=== PATIENT | female | born 1960 | race Caucasian/White ===

== ENCOUNTER 2024-11-17 08:33 | Outpatient (AMB) | payer OTHER, SELFPAY ==
--- OUTSIDE RECORDS SUMMARY | 2024-07-23 06:30 | XMS_ITS ---
Author Organization [facility] [address] Address [address] [place] [address] Care Team Providers Care Garage Mechanic Name Role Phone SEAMUS RODRIGODALE Primary Care Provider [phone] SEAMUS LETICIA Unavailable [phone] REASON FOR VISIT 2 month f/u, secca Encounters Encounter Location Date Provider Diagnosis [facility] [address] [place] [address] 07/23/[address] Plan Of Treatment Next Appt Details Provider Name:KAIT [address], 09:00:00 AM, [address], [place], [address], Progress Notes * Lilli CARTWRIGHTDOB: [birth year] (64 yo F)Acc No.[id number]:07/23/2024 Progress Notes Patient: Lilli BAKER Provider: Bar WAY MD :1960 A ge:64 Y S ex:Female Date:07/23/2024 Address:[address] [place], [place] [id number] Subjective: * Chief Complaints: * 1 . 2 month f/u, secca. * Medical History: Objective: * Vitals: Assessment: Plan: * Treatment: * Images: Billing Information: * Visit Code: * Procedure Codes: Care Plan Details* * Electronic signature of JOSHUA H WAY on 11/17/2024 at 08:43 AM EDT Sign off status: Pending * Provider: Bar WAY MD Date: 07/23/2024 Generated for Omar arias/Ashwin/eTransmitting on: 0 11/17/2024 08:43 AM EDT
--- NOTE | 2024-11-17 08:37 | A.OFFVIS_ITS ---
Vital Signs 11/17/24 08:38 Height 5 ft 2 in Intake Visit Reasons: 1 Year FU Allergies codeine (CODEINE) Allergy (Unknown, Unverified 11/17/24 08:40) CHEST PAIN morphine (MORPHINE) Allergy (Unknown, Unverified 11/17/24 08:40) AGITATION trazodone Allergy (Unknown, Verified 11/17/24 08:40) Unknown Medication List - Last Reconciled 11/17/24 by Veronica Pickard CNP lisinopril 20 mg PO DAILY naratriptan 2.5 mg PO DAILY PRN pramipexole 1 mg PO DAILY HPI Comments Details: 64-year-old woman with h/o endometrial cancer, migraine, and restless leg syndrome. She was doing okay. RLS symptoms were controlled with medication. She had occasional migraines that were better with 1/2 tab of naratriptan. Sleep was up and down. [facility] Medical History (Updated 11/17/24 @ 08:44 by Veronica Pickard CNP) Endometrial cancer Migraine without aura RLS (restless legs syndrome) Insomnia Migraine Menstrual migraine Surgical History (Updated 11/17/24 @ 08:42 by Veronica Pickard CNP) History of hysterectomy for cancer Family History (Updated 11/13/24 @ 17:06 by Paradise Garcia MA) Mother Headache Social History (Updated 11/13/24 @ 17:06 by Paradise Garcia MA) Patient Tobacco Use Status: Never used Tobacco Review of Systems Const Denies chills, Denies daytime sleepiness, Reports difficulty sleeping, Denies fatigue, Denies fever(s), Denies frequent falls, Reports headache(s), Denies increased appetite, Denies poor appetite, Denies snoring, Denies weakness, Denies weight gain and Denies weight loss Eyes Denies loss of vision ENT Denies vertigo, Denies dizziness and Reports headache(s) Card Denies chest pain at rest, Denies chest pain with activity, Denies leg edema and Denies palpitations Resp Denies snoring GI Denies constipation, Denies heartburn, Denies diarrhea and Denies nausea Denies urinary frequency, Denies urinary incontinence and Denies urinary urgency Musc Denies abnormal gait, Denies numbness and Denies tingling Skin/Breast Denies dry skin and Denies rash Neuro Denies abnormal gait, Denies vertigo, Denies dizziness, Denies frequent falls, Reports headache(s), Denies lack of coordination, Denies loss of vision, Denies memory loss, Denies numbness, Reports restless legs, Denies seizure-like activity, Denies tingling, Denies paresthesias, Denies tremor(s) and Denies weakness Psych Denies anxiety, Denies depression, Denies auditory hallucinations, Denies memory loss, Denies visual hallucinations and Denies suicidal ideation Endo Denies fatigue and Denies palpitations Physical Exam Const Other: General Appearance:? normal, in no acute distress. Skin:? no rashes, no significant birthmarks. Heart:? S1, S2 normal, no murmurs. Lungs:? clear anteriorly and posteriorly. Extremities:? no edema. Psych:? alert, oriented, cognitive function intact, cooperative with exam. Neuro Other: Mental Status:?Normal attention, orientation, memory and affect.? Cranial Nerves:?Pupils are equal, round and reactive to light. External occular muscles are intact. Visual robbins are full. Face is symmetrical. Facial sensations are normal. Tongue is midline. Palate elevates symmetrically. Shoulder shrugging is normal. Hearing to bedside conversation is normal. Motor Examination:?Normal muscle tone, bulk and strength,?Deep tendon reflexes are 2+,?Plantars are flexor.? Sensory Exam:?....? Coordination:?No ataxia,?no titubation.? Gait Exam: Within normal limits. Cerebellar Signs:?Zqydwa-mm-iwid and vulz-ug-gdbo is normal.? Extrapyramidal System:?No tremor, rigidity with normal facial expressions.? Pronator Drift:?Not present.? Involuntary Movements:?No tremors seen.? Speech:?Normal.? Assessment & Plan Assessment & Plan (1) RLS (restless legs syndrome): Code(s): G25.81 - Restless legs syndrome Category: Medical Plan: Refilled pramipexole 1mg 1 tablet in the evening (2) Migraine: Code(s): G43.909 - Migraine, unspecified, not intractable, without status migrainosus Category: Medical Qualifiers: Intractability: not intractable Migraine type: unspecified Status migrainosus presence: without status migrainosus Qualified Code(s): G43.909 - Migraine, unspecified, not intractable, without status migrainosus Plan: Refilled naratriptan 2.5mg 1 tablet as needed for migraine Plan . Medications: New naratriptan take 1 tab at onset of headache; if no relief may repeat 1 tab after at least 4 hrs; max = 2 tabs/24 hrs PO 10 tabs 5RF 30 days pramipexole 1 mg orally in the evening; 90 tabs 3RF 90 days Discontinued naratriptan Discontinued Reason: Order 2.5 mg PO DAILY PRN headache pramipexole Discontinued Reason: Order 1 mg PO DAILY Coding Level of Care Code Est Pt Level 3 (48101) Diagnoses RLS (restless legs syndrome) G25.81 Migraine without status migrainosus, not intractable, unspecified migraine type G43.909 Intractability: not intractable Migraine type: unspecified Status migrainosus presence: without status migrainosus
--- OUTSIDE RECORDS SUMMARY | 2024-11-17 08:43 | XMS_ITS | Clinical Summary ---
Author Organization [facility] Address [address] [place] [address] Care Team Providers Care Release Specialist Name Role Phone Sanket Lopez MD Primary Care Provider [phone] Social History Tobacco Use Types Packs/Day Years Used Date Smoking Tobacco: Never Assessed Sex and Gender Information Value Date Recorded Sex Assigned at Not on file Gender Identity Not on file Sexual Orientation Not on file Job Start Date Occupation Industry Not on file Not on file Not on file Plan of Treatment Health Maintenance Due Date Last Done Comments Hepatitis C Screening 1960 COVID-19 Vaccine (#1) 1962 Depression Screening 1974 Preventative Health Evaluation 1980 DTap / Tdap / Td (1 - Tdap) 1981 Cervical Cancer Screening (P ap Smear) 1983 Colon Cancer Screening (Colonoscopy) 2007 Breast Cancer Screening (Mammogram) 2012 Shingrix-Zoster Vaccine (1 of 2) 2012 Influenza Vaccine (Season Ended) 2025 RSV Adult > 60+ Yrs or Pregn ant (1 - 1-dose 75+ series) 2037 Hepatitis B Vaccines Aged Out No long er eligible based on patient's age to complete this topic Pneumococcal Vaccine Aged Out No long er eligible based on patient's age to complete this topic RSV Ped < 20 months Aged Out No longe r eligible based on patient's age to complete this topic Care Teams Release Specialist Relationship Specialty Start Date End Date Sanket Lopez MD [address] [place] [address] PCP - General Internal Medicine 07/19/21
--- OUTSIDE RECORDS SUMMARY | 2024-11-17 08:43 | XMS_ITS | Data Portability ---
Author Organization [place] - [facility],, WILLA MASON MD Address [address] [facility] [address] [place] [address] Assessment No assessment recorded. Plan of Treatment Reminders Order Date Submit Date Provider Last Modified By Organization Details Last Modified Time Details Appointments None recorded. Lab pap test, thinprep, cervical 2017 018 [facility], Cytopathology Service, [address] [place], [address], 8 11:36:12 fecal occult blood, stool 2017 018 laura In-Office Order, Internal Use Only DO Not Attach Compendium DO Not Attach Compendium, Do Not Delete/merge, [id number] 07:24:40 biopsy, vulva 2016 017 [facility], [address] [place], [address], 7 07:47:18 Referral None recorded. Procedures biopsy, vulva (PROC) 2016 017 [email or web address] 1 In-Office Order, Internal Use Only DO Not Attach Compendium DO Not Attach Compendium, Do Not Delete/merge, [id number] 7 11:06:02 Surgeries None recorded. Imaging MAMMO, screening , digital, bilateral 2017 018 [facility] (Mammography), [address] [place], [address], 8 12:32:18 Medication Orders estradiol 1 mg tablet 2017 018 INTERFACE [id number], [address] [place], [address], 8 13:31:43 progester one micronize d 200 mg capsule 2017 018 INTERFACE [id number], [address] [place], [address], 8 13:31:43 levofloxa gianni 500 mg tablet 2016 017 [id number] [address] [place], [address], 8 13:22:49 azithromy gianni 250 mg tablet 2016 017 [facility] [address] [place], [address], 13:22:07 Patient TargetsNo targets recorded. 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 She tried antibiotics and they resolved it for a few weeks but now it is back in [facility] same location. It has been present for months on and off. She has what appears to be a chronically infected, superficial boil. She is aware that this might need to be excised under anesthesia in [facility] OR, but would like to try in the office, first. It is superficial and so may be able to be fully removed by superficial excision. Will treat with antibiotics for now, return in 4 days to remove. Risks of infection and bleeding, possible need to go to OR for full removal discused, she is aware. Face to face discussion 25 minutes kellen Not available 12/29/2016 14:12:43 01/02/2017 [id number] vulvar biopsy education [email or web address] Not available 01/02/2017 11:19:44 She is here to remove a left vulvar chronic superficial abscess, may have been a chronically infected ingrown hair, appears to be too superficial to be a lymph node. She has been on antibiotics since Sunday. The area is much smaller than last week due to antibiotics, and very superficial, only 3 mm thick or so. It was completely excised, she tolerated well. Contineu antibiotics, return tomorrow morning to recheck. She will return tomorrow morning to recheck, as the area was initially infected and so ther is a concern it may need ot heal by secondary intent and the sutures might need to be removed, she is aware. Not available 01/02/2017 11:04:24 01/03/2017 [id number] She is here for follow up after excision of an infected skin structure yesterday. The area is the same level of tenderness , and no discharge or pus, but still red. She has been taking zithromax since Sunday. The area does not appear to be infected from the procedure, however the tissues are just as red as yesterday, despite the zithromax, it was a purulent abscess, will change to levaquin. She is advised that if the area swells or and discharge occurs she is to contact me immediately, to remove sutures. Not available 01/03/2017 08:48:25 01/12/2017 [id number] She is here to remove sutures from her groin incision. The tissue was chronically inflamed and benign. She notes that even though she took antibiotics, the area is intermediate frame tender and red, and yesterday it leaked some red fluid onto her clothing. there had been 2 sutures, one is still rpesent, this is removed. the area is visually improved over the chronic ulcer that had been here previously, but there is still a tender, firm area in the skin of approx 5 mm depth. The skin is closed and healed over. The sutre was removed. she is advised that if the chronic infection was deeper than could be excised in [facility] office then she will need to see a general surgeon because of the location, she understands and agrees. It may need a deeper excision which would be done in the OR, likely. Not available 01/12/2017 13:10:12 10/19/2017 [id number] She is here for annual exam, is taking HRT and notes she has no headaches since beginning the HRT. She has the recurrent vulvar abscess removed surgically by Dr. Rucker, a large cyst was removed last year. The significant health benefits of becoming and remaining fit, with an optimal BMI, were discussed. We discussed the potential reduction in chronic discomfort, the diminished risks of hypertension, diabetes, and heart disease with the proper weight management, and improved mobility as she ages. Strategies to reach and maintain her target weight were discussed in detail. We discussed the avoidance of empty calories, the benefit of increasing her protein intake in the morning and diminishing her carbohydrate intake in the evening. A formalized dietary program was discussed, such as Weight Watchers. We discussed the use of the BMI calculator in following her progress. We discussed the possibility of having her begin a standardized exercise regimen, such as that at [employer], and she is given literature for this. We discussed a referral to a hotel guest service agent and/or weight director of materials management. All questions were answered. She clyde think about all this and get back to me. She appears to be doing well. She is advised to get 1500 mg of calcium daily into her diet and supplements combined. We discussed the benefits of adequate vitamin D supplementation to at least 400 units daily, daily aerobic exercise of 30 minutes, and stress reduction. Monthly self breast exam was taught, and stressed, and is advised to call if she discovers any new mass in the breast. Seat belt use for herself and passengers advised. We discussed having her continue to take hormone replacement therapy. We discussed the need to take a progestin if a uterus is present, and the rationale behind that. We discussed the stated risks of one in 10,000 of development of a blood clot/DVT/PE that could be life threatening. We discussed the Women's Health Initiative study and the findings. We discused the PEPPI study as well. She is aware that there are conflicting reports in the medical literature concerning the risks and benefits of HRT. We disussed that women are advised by ACOG to take HRT in the lowest dose necessary, and for the shortest time necessary, to control their symptoms. After a long discussion of the potential risks and benefits of HRT she elects to continue HRT. All questions were answered. Rx for HRT is called in to the pharmacy. Call if any vaginal bleeding occurs upon initiation of HRT, or at any time postmenopausally. Not available 10/19/2017 13:46:13 Reason for Referral None Reported. Results Created Date Observation Date Name Description Value Unit Range Abnormal Flag Note LastModifiedBy Organization Detail LastModifiedTime 10/20/19 18 10/19/2017 fecal occul t blood , stool Occult Blood negati ve Not Available In-Office Order Internal Use Only DO Not Attach Compendium DO Not Attach Compendium, Do Not Delete/merge, [id number] 10/19/2017 13:24:45 01/03/20 17 01/02/2017 biops y, vulva surgicalcase Skin, vulva , biops y: -SPON GIOTI C EPIDE RMAL HYPER PLASI A WITH ACUTE AND CHRON IC INTRA EPIDE RMAL AND DERMA L INFLA MMATI ON. -Nega tive for dyspl fozia/ SANA. -Spec ial stain s (GMS and PAS) are negat evelyne for funga l hypha e, with appro priat e contr ols. Isak montalvo M.D., Patho logis t (Case elect mynor eli espinoza d 01 04 2017) Pre-O p/Cli nical Diagn osis: ICD-1 0: N76.4 : ABSCE SS OF VULVA Speci men and Site: VULVA -BIOP SY Gross Descr iptio n: Label ed vulv a biops y . Recei alessia in scant forma matthew, wrapp ed in gauze , are two rubbe ry, mack, ellip tical porti ons of epith elium , avera ging 2 mm in great est diame ter, with a scant amoun t of adher ent gross ly clott ed blood . The speci men is wrapp ed in paper and submi tted in toto in one casse tte, two piece s, multi ple level s on one slide . [facility] : FERCHO ROMO N /#[phone] [id number] 9 [facility] Patho log[facility] servi devang provi ded by [facility] Not Available [facility] Cytopathology Service [address] [facility], [place], [address], 01/05/2017 07:45:59 10/20/19 18 10/19/2017 pap, LB [id number] ThinP rep Pap, Image d: NEGAT EVELYNE FOR SQUAM OUS INTRA EPITH ELIAL LESIO N AND DHAVAL MONET . Nydia da is prese nt. Kathl een Dziur a, CT( CP) (Case elect mynor eli espinoza d 10 22 2017) ADEQU ACY: Satis facto ry. Endoc ervic al/tr ansfo rmati on zone compo nent prese nt. SOURC E: ThinP rep Pap HPV IF ASCUS , Cervi maycol, Image d: CLINI MAYCOL INFOR MATIO N: HPV If Diagn osis of ASCUS . LPS neg. z12.4 Not Available [facility] Cytopathology Service [address] [place], [address], 10/22/2017 11:36:11 11/17/19 18 11/16/2017 MAMMO , scree jori, digit al, bilat eral No observ ation record ed. [facility] [address] [place], [address], 11/16/2017 13:35:08 11/21/19 18 11/20/2017 MAMMO , diagn ostic , digit al, unila teral No observ ation record ed. [address] Diagn[facility] Imaging Dept [address] [place], [address], 11/20/2017 10:55:56 05/24/19 19 05/24/2018 MAMMO , diagn ostic , digit al, unila teral No observ ation record ed. [address] [facility] [address] [place], [address], 05/24/2018 11:13:49 Result Notes None recorded. Problems Name Problem SNOMED Code Status Onset Date Resolution Date Notes Provider Name and Address Organization Details Recorded Time Menopausal syndrome 337893368 Active Willa Mason MD [address], [place], [address], [place] [facility], 6 12:44:13 Amenorrhea 79830992 Active Willa Mason MD [address], [place], [address], [place] [facility], 6 12:44:13 Headache 07252691 Active Willa Mason MD [address], [place], [address], [place] [facility], 6 12:44:13 Tubo-ovarian mass 789938620 Active Willa Mason MD [address], [place], [address], [place] [facility], 6 12:44:13 Hypertensive disorder 98695972 Active Willa Mason MD [address], [place], [address], [place] [facility], 6 12:44:13 Problem Notes None recorded. Procedures Surgical History Date Name Laterality Status Provider Name and Address Organization Details Recorded Time 01/03/20 17 Vulvar Biopsy completed Willa Mason MD [address], [place], [address], [place] - [facility], 01/02/2017 11:04:07 05/14/19 12 Breast Biopsy completed Yanira Patel in [facility], 06/30/2014 11:14:37 05/14/18 90 Cholecystectomy completed Yanira Kitchen [place] - [facility] in [facility], 06/30/2014 11:14:37 05/14/18 87 Caesarean Section completed Yanira Kitchen [place] - [facility], 06/30/2014 11:14:37 Imaging Results None recorded. Procedure Notes None recorded. Medical Equipment None Reported. Allergies Allergen ID Allergen Name Allergen Category Reaction Reaction Severity Criticality Documentation Date Start Date Code Code System Note Provider Name and Address Organization Details Recorded Time 14525 codeine medicatio n chest pain Not available Not available 06/30/2014 2670 RxNorm Yanira garcia [place] - [facility], 5 11:14:37 Medications Name Sig Start Date Stop Date Status Note LastModified by Organization Details LastModified Time sumatriptan succinate 50 mg tabs active Not Available Not Available N ot Available hydrochloro thiazide 12.5 mg caps active Not Available Not Available Not Available naratriptan hcl 2.5 mg tabs active Not Available Not Available Not Available progesteron e 200 mg caps active Not Available Not Available Not Available estradiol 0.5 mg tabs 09/22 completed Not Available Not Available Not Available temazepam 30 mg caps active Not Available Not Available N ot Available lorazepam 1 mg tabs active Not Available Not Available Not Available gabapentin 300 mg caps 10/19 completed Not Available Not Available Not Available pramipexole dihydrochlo ride 0.25 mgtabs active Not Available Not Available Not Available trazodone hcl 50 mg tabs active Not Available Not Available Not Available nabumetone 750 mg tablet TAKE 1 TABLET BY MOUTH TWICE A DAY active Not Available Not Available No t Available trazodone 50 mg tablet TAKE 1 TABLET AT BEDTIME NEEDED ONCE A DAY 09/22 completed Not Available Not Available Not Available azithromyci n 250 mg tablet take 2 tablets on day 1 ( 500 mg) then one tablet a day for 6 additiona l days 10/19 completed Not Available Not Available Not Available fluconazole 150 mg tablet TAKE 1 TABLET BY MOUTH NOW FOR SINGLE DOSE active Not Available Not Available No t Available phenazopyri dine 200 mg tablet TK 1 T PO Q 4 H PRF DISCOMFOR T active Not Available Not Available No t Available prednisone 20 mg tablet active Not Available Not Available Not Available rizatriptan 10 mg tablet TK 1 T PO QD PRF CONTEH active Not Available Not Available No t Available sumatriptan 50 mg tablet TAKE 1 TABLET BY MOUTH EVERY DAY NEEDED HEADACHES active Not Available Not Available No t Available topiramate 25 mg tablet TAKE 1 TABLET BY MOUTH EVERY DAY AT BEDTIME active Not Available Not Available No t Available ciprofloxac in 500 mg tablet TAKE 1 TABLET BY MOUTH TWICE A DAY FOR 10 DAYS active Not Available Not Available No t Available amitriptyli ne 25 mg tablet TK 1 T PO QHS active Not Available Not Available No t Available estradiol 1 mg tablet TAKE 1 TABLET BY MOUTH EVERY DAY active Not Available Not Available No t Available temazepam 15 mg capsule TK ONE C PO QHS FOR 5 NIGHTS OUT OF 7 PRF INSOMNIA active Not Available Not Available No t Available temazepam 30 mg capsule TAKE ONE CAPSULE BY MOUTH EVERY NIGHT AT BEDTIME FOR 5 NIGHTS, THEN 2 DAYS OFF active Not Available Not Available No t Available rizatriptan 10 mg disintegrat ing tablet DIS ONE T PO QD PRF CONTEH active Not Available Not Available No t Available oseltamivir 75 mg capsule 10/19 completed Not Available Not Available Not Available orphenadrin e citrate ER 100 mg tablet,exte nded release active Not Available Not Available Not Available progesteron e micronized 200 mg capsule TAKE 1 CAPSULE BY MOUTH DAILY AT BEDTIME. 2017 active Not Available Not Available Not Avai lable hydrochloro thiazide 12.5 mg capsule TAKE 1 CAPSULE BY MOUTH EVERY DAY active Not Available Not Available No t Available hydrocodone -homatropin e 5 mg-1.5 mg/5 mL oral solution active Not Available Not Available Not Available pramipexole 0.25 mg tablet TAKE 1-2 TABLETS EVERY DAY active Not Available Not Available No t Available gabapentin 300 mg capsule TAKE 1 CAPSULE BY MOUTH EVERY DAY 09/22 completed Not Available Not Available Not Available zolpidem 5 mg tablet TK 1 T PO ONCE D HS 10/19 completed Not Available Not Available Not Available mirtazapine 15 mg tablet 10/19 completed Not Available Not Available Not Available estradiol 0.5 mg tablet TAKE 1 TABLETBY MOUTH EVERY DAY active Not Available Not Available No t Available lorazepam 1 mg tablet TAKE 1 TABLET BY MOUTH NEEDED FOR SLEEP USE ONLY 5 OUT OF 7 DAYS...FO R INSOMNIA/ ANXIETY active Not Available Not Available No t Available levofloxaci n 500 mg tablet Take 1 tablet every 24 hours by oral route for 4 days. 10/19 completed Not Available Not Available Not Available fluticasone propionate 50 mcg/actuati on nasal spray,suspe nsion USE 1 SPRAY IN EACH NOSTRIL TWICE DAILY active Not Available Not Available No t Available naratriptan 2.5 mg tablet *12/04*BOBBI E 1 TABLET NEEDED ONCE A DAY FOR HEADACHE active Not Available Not Available No t Available naproxen 500 mg tablet 10/19 completed Not Available Not Available Not Available amoxicillin 500 mg-potassiu m clavulanate 125 mg tablet active Not Available Not Available Not Available rizatriptan 5 mg tablet TK 2 TS PO QD PRF CONTEH active Not Available Not Available No t Available eszopiclone 2 mg tablet TK 1 T PO QHS IMMEDIATE LY BEFORE BEDTIME active Not Available Not Available No t Available Fish Oil 10/19 completed Not Available Not Available Not Available biotin 10/19 completed Not Available Not Available Not Available Topamax active Not Available Not Avail able Not Available Calcium 500 + D active Not Available Not Available Not Available oxycodone 10 mg tablet TK 1 T PO QD PRN FOR CONTEH active Not Available Not Available No t Available Multi Vitamin active Not Available Not Available Not Available Vitals Date Recorded Body height Body mass index (BMI) Body weight Heart rate Systolic And Diastolic Provider Name and Address Organization Details Last Updated DateTime 10/19/2017 157.48 cm 24.4 kg/m2 86283.94 g 74 /min 144/77 mm[Hg] Yanira Patel in [facility], 10/19/2017 13:20:05 Date Recorded Body height Heart rate Body mass index (BMI) Body weight Systolic And Diastolic Provider Name and Address Organization Details Last Updated DateTime 12/29/2016 157.48 cm 68 /min 23.3 kg/m2 37014.39 g 139/77 mm[Hg] Diana Patel in [facility], 12/29/2016 13:41:50 Date Recorded Body height Body mass index (BMI) Body weight Heart rate Systolic And Diastolic Provider Name and Address Organization Details Last Updated DateTime 01/02/2017 157.48 cm 23.3 kg/m2 48703.67 g 68 /min 136/65 mm[Hg] Yanira Patel in [facility], 01/02/2017 10:32:35 Date Recorded Body height Body mass index (BMI) Body weight Heart rate Systolic And Diastolic Provider Name and Address Organization Details Last Updated DateTime 01/03/2017 157.48 cm 23.4 kg/m2 62285.82 g 71 /min 130/80 mm[Hg] Yanira Patel in [facility], 01/03/2017 07:50:07 Date Recorded Body height Body mass index (BMI) Body weight Heart rate Systolic And Diastolic Provider Name and Address Organization Details Last Updated DateTime 01/12/2017 157.48 cm 23.4 kg/m2 30119.82 g 66 /min 136/66 mm[Hg] Yanira Meczywor [place] [facility], 01/12/2017 08:44:29 Social History Question Answer Notes LastModified by Organizat ion Details LastModified Time Tobacco Smoking Status Never Smoker Not Available [facility] 03/16/2020 03:19:41 What Is Your Level Of Caffeine Consumption? Occasional [id number] Information not available 03/16/2020 What Type Of Diet Are You Following? REGULAR [id number] Information not available 03/16/2020 Which Illicit Or Recreational Drugs Have You Used? No [id number] Information not available 03/16/2020 Do You Reside In Or Have You Traveled To An Area Where Ebola Virus Transmission Is Active? No [id number] Information not available 03/16/2020 Education 2 Year College Information not available 06/30/2014 How Many Days In The Past Year Have You Had A Heavy Drinking Consumption (4+ Female, 5+ Male)? 0 Information not available 09/22/2016 High Number Of Sexual Partners No Information not available 09/22/2016 To Which Gender Do You Self-identify? Female Information not available 09/22/2016 Marital Status Informatio n not available 06/30/2014 What Was The Date Of Your Most Recent Tobacco Screening? 10/19/2017 [id number] Information not available 03/16/2020 Are You Sexually Active? Yes [id number] Information not available 03/16/2020 How Much Tobacco Do You Smoke? No [id number] Information not available 03/16/2020 General Stress Level Low Information not available 09/10/2015 How Many Years Have You Smoked Tobacco? 0 [id number] Information not available 03/16/2020 Have You Recently (within The Last 12 Weeks, Or During A Current ) Traveled To Or Lived In A Zika-affected Area? [place] Information not available 09/22/2016 Sex: Unknown Functional Status Question Answer Note LastModified by Organizat ion Details LastModified Time What is your level of alcohol consumption? 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 [id number] Information not available 03/16/2020 What is your exercise level? Moderate [id number] Information not available 03/16/2020 Mental Status None recorded. Family History Relationship Description Onset Age of this Age Resolved Age Notes LastModified by Organization Details LastModified Time Father Heart disease Not available 08/13 10:47:43 Mother Alzheimer's disease 49 early onset. Not available 09/10/2015 10:47:43 Medical History Condition Response Anesthesia complications N High Blood Pressure Y Candidate for MyRisk panel N Thyroid Problems N Kidney or Bladder Problems N GI Problems N Lung Disease N Depression N Defects or Inherited Disease N History of Ovarian Cancer N Anemia N History of Breast Cancer Y BRCA testing in past N Psychiatric Illness N Anxiety Disorder N Diabetes N Arthritis N Headaches or Migraines Y Infertility N Asthma N History of Cancer N Endometriosis N Hepatitis N Heart Disease N Hypertension Y Gynecological History Statement/Question Response Flow Light Date of LMP Frequency of Cycle (Q days) Menses Monthly N Duration of Flow (days) Age at Menarche 14 Current Control Method Partner Vas ectomy Age at First Child 26 Hormone Replacement Therapy Y Obstetrics History GPAL:G 2 P 2 0 0 2 Type Value Full Term 2 Living 2 Total 2 Past Encounters Encounter ID Performer Location Encounter Start Date Encounter Closed Date Diagnosis/Indication Diagnosis SNOMED-CT Code Diagnosis ICD10 Code Diagnosis Note [id number] MD WILLA Castillo MD [address] [place] [address],[address] [place] [address] 06/30/2014 10:49:57 06/30/2014 13:16:31 Menopausal syndrome 780617522 Amenorrhea 24823645 Headache 39619344 [id number] MD WILLA Castillo MD [address] [place] [address],[address] [place] [address] 08/28/2014 09:09:25 08/28/2014 12:13:28 Specialized medical examination 34876752 Screening for malignant neoplasm of rectum 552355509 Screening mammography 44166447 Menopausal syndrome 664309725 Tubo-ovarian mass [id number] MD WILLA Castillo MD [address] [place] [address],[address] [place] [address] 09/25/2014 09:44:12 09/25/2014 13:09:51 Tubo-ovarian mass [id number] MD WILLA Castillo MD [address] [place], [place] [address] [address] 12/25/2014 09:57:23 12/25/2014 13:08:43 Tubo-ovarian mass 445034411 Hypertensive disorder 49984624 [id number] MD WILLA Castillo MD [address] [place] [address] [place] [address] 09/10/2015 10:13:42 09/10/2015 14:59:07 Specialized medical examination 50192936 Z01.419 Screening for malignant neoplasm of rectum 730853026 Z12.12 Screening mammography 24 160623 Z12.31 [id number] MD WILLA Castillo MD [address] [place] [address] [place] [address] 09/22/2016 09:08:15 09/22/2016 11:21:22 Specialized medical examination 74108096 Z01.419 Screening for malignant neoplasm of rectum 118938513 Z12.12 Screening mammography 24 015709 Z12.31 Menopausal syndrome 1237 34062 N95.9 Abscess of vulva 3752803 1 N76.4 [id number] MD WILLA Castillo MD [address] [place], [place] [address] [address] 12/29/2016 13:35:52 12/29/2016 15:00:52 Abscess of vulva 22706768 N76.4 [id number] MD WILLA Castillo MD [address] [place], [place] [address] [address] 01/02/2017 10:20:54 01/02/2017 11:35:12 Abscess of vulva [id number] N76.4 [id number] MD WILLA Castillo MD [address] [place], [place] [address] [address] 01/03/2017 07:45:07 01/03/2017 10:03:33 Abscess of vulva [id number] N76.4 [id number] MD WILLA Castillo MD [address] [place], [place] [address] [place] [address] 01/12/2017 08:41:06 01/12/2017 13:36:47 Abscess of vulva [id number] N76.4 [id number] MD WILLA Castillo MD [address] [place] [address] 10/19/2017 13:12:34 10/19/2017 14:22:09 Specialized medical examination [id number] Z01.419 Screening for malignant neoplasm of rectum [id number] Z12.12 Screening mammography 24 277174 Z12.31 Menopausal syndrome 1237 97267 N95.1 Health Concerns Section Related Observation LastModified by Organization Detai ls LastModified Time None Recorded Concern Status LastModified by Organization Details LastModified Time None Recorded Advance Directives Directive None Recorded Payers Insurance Date Sequence Insurance Name Policy Number Policy Meza Covered Member ID Meza Member ID Guarantor Name 10/19/2017 1 [facility] [place] [id number] 1 Nando Boston [id number] Lilli Boston Notes Date Note Type Note Provider Name and Address Organization Details Recorded Time 12/29/2016 text/html She is here for discussion of her recurrent vulvar abscess. She tried antibiotics and they resolved it for a few weeks but now it is back in [facility] same location. It has been present for months on and off. Willa Mason MD [address] [facility],[address], [place], [address], [place] [facility], 12/29/2016 14:59:35 01/02/2017 text/html She is here to remove a left vulvar chronic superficial abscess, may have been a chronically infected ingrown hair, appears to be too superficial to be a lymph node. She has been on antibiotics since Sunday. Willa Mason MD [address] [facility],[address], [place], [address], [place] [facility], 01/02/2017 11:06:43 01/03/2017 text/html She is here for follow up after excision of an infected skin structure yesterday. The area is the same level of tenderness , and no discharge or pus, but still red. She has been taking zithromax since Sunday. Willa Mason MD [address] [facility],[address], [place], [address], [facility], 01/03/2017 08:48:39 01/12/2017 text/html She is here to remove sutures from her groin incision. The tissue was chronically inflamed and benign. She notes that even though she took antibiotics, the area is intermediate frame tender and red, and yesterday it leaked some red fluid onto her clothing. Willa Mason MD [address] [facility],[address], [place], [address], [place] - [facility], 01/12/2017 13:50:21 10/19/2017 text/html She is here for annual exam, is taking HRT and notes she has no headaches since beginning the HRT. She has the recurrent vulvar abscess removed surgically by Dr. Rucker, a large cyst was removed last year. Willa Mason MD [address] [facility],[address], [place], [address], [facility], 10/19/2017 13:46:36 OBGyn Episode No OBEpisode recorded.
--- OUTSIDE RECORDS SUMMARY | 2024-11-17 08:43 | XMS_ITS | Clinical Summary ---
Author Organization [facility] Address [address] [place] [address] Phone Care Team Providers Care Call Center Assistant Name Role Phone Sanket Lopez MD Primary Care Provider [phone] Surgical History Surgery Date Site/Laterality Comments BREAST MASS EXCISION 05/14/2011 - 05/13/2012 Right pathology benign HYSTERECTOMY 05/14/2021 - 05/13/2022 Medical History Medical History Date Comments Hypertension 03/01/2017 DX:Hypertension Basal cell carcinoma of skin 03/07/2017 DX: Basal cell carcinoma of skin; COMMENT: Superficial and nodular type left upper arm - February 2017 Basal cell carcinoma of skin 03/07/2017 DX: Basal cell carcinoma of skin Endometrial cancer ([facility] V24, [facility] V28) 2021 Social History Tobacco Use Types Packs/Day Years Used Date Smoking Tobacco: Never Smokeless Tobacco: Never Alcohol Use Standard Drinks/Week Comments Yes 0 (1 standard drink = 0.6 oz pur e alcohol) Comments No Sex and Gender Information Value Date Recorded Sex Assigned at Female 06/05/2024 12:40 PM EST Legal Sex Female 4:44 AM EST Gender Identity Female 06/05/2024 12:40 PM EST Sexual Orientation Straight 06/05/2024 12 :40 PM EST Obstetrics History Para Term AB IAB SAB Ectopic Multiple Livin g Live Births 2 Last Filed Vital Signs Vital Sign Reading Time Taken Comments Blood Pressure 190/92 09/26/2023 9:39 AM EDT Sit ting L Arm Pulse 81 09/26/2023 9:34 AM EDT Temperature - - Respiratory Rate - - Oxygen Saturation - - Inhaled Oxygen Concentration - - Weight 59 kg (130 lb) 06/20/2024 8:49 AM EST Height 157.5 cm (5' 2 ) 06/20/2024 8:49 AM EST Body Mass Index 23.78 06/20/2024 8:49 AM EST Plan of Treatment Health Maintenance Due Date Last Done Comments Pneumococcal Vaccine: 50+ Years (1 of 2 - PCV) 1981 Pneumococcal Vaccine: Pediatrics (0 to 5 Years) and At-Risk Patients (6 to 64 Years) (1 of 2 - PCV) 1981 Cervical Cancer Screening: Pap Smear 1983 Cholesterol Screening (Lipid Panel) 04/16/2022 Colorectal Cancer Screening: Colonoscopy 04/16/2022 Depression Screening 04/16/2022 HIV Screening 04/16/2022 Hepatitis C Screening 04/16/2022 Social Influencers of Health Screening 04/16/2022 Hypertension/CHF/CAD Annual BMP Blood Test 04/29/2022 COVID-19 Vaccine ( season) 2024 04/29/2021, 06/25/2020, 06/04/2020 Zoster Vaccines (2 of 2) 07/11/2024 05/16/2024 Influenza Vaccine (#1) 2025 4, 03/03/2023, 03/27/2022, Additional history exists Breast Cancer Screening 06/20/2026 06/20/19, 12/22/2022, 09/30/2021, Additional history exists DTaP,Tdap,and Td Vaccines (2 - Td or Tdap) 04/30/2030 04/30/2020 RSV Immunization Adult Patients (1 - 1-dose 75+ series) 2037 HIB Vaccines Aged Out No longer eligi ble based on patient's age to complete this topic HPV Vaccines Aged Out No longer eligi ble based on patient's age to complete this topic Hepatitis A Vaccines Aged Out No long er eligible based on patient's age to complete this topic Hepatitis B Vaccines Aged Out No long er eligible based on patient's age to complete this topic IPV Vaccines Aged Out No longer eligi ble based on patient's age to complete this topic MMR Vaccines Aged Out No longer eligi ble based on patient's age to complete this topic Meningococcal ACWY Vaccine Aged Out N o longer eligible based on patient's age to complete this topic Meningococcal B Vaccine Aged Out No l onger eligible based on patient's age to complete this topic RSV Immunization Patients Under 20 months Aged Out No longer eligible based on patient's age to complete this topic Varicella Vaccines Aged Out No longer eligible based on patient's age to complete this topic Procedures Procedure Name Priority Date/Time Associated Diagnosis Comments MG MAMMO DIGITAL SCREENING W DANK BILAT Routine 06/20/2024 9:05 AM EST Encounter for screening mammogram for breast cancer from Last 3 Months or Most Recently Relevant to Health Maintenance Results * MG Mammo Digital Screening w Dank bilat (06/20/2024 9:05 AM EST) Anatomical Region Laterality Modality Breast Bilateral Mammography 06/20/2024 9:15 AM EST Impressions 06/20/2024 9:17 AM EST No evidence of breast malignancy. BI-RADS CATEGORY: 1 - NEGATIVE RECOMMENDATION: Screening bilateral mammogram is recommended in 1 year. Mammo Location: [facility] , [address] [place] [address], [address], . -------- FINAL REPORT -------- Dictated By: Lizzette Lopez Dictated Date: 06/20/2024 09:15 ET Assigned Physician: Lizzette Lopez Reviewed and Electronically Signed By: Lizzette Lopez Signed Date: 06/20/2024 09:17 ET Workstation ID: [id number] Transcribed By: Self Edit Transcribed Date: 06/20/2024 09:15 ET Narrative 06/20/2024 9:17 AM EST CLINICAL: 64 years old, Female, routine annual exam. COMPARISON: 12/22/2022, 09/30/2021, 12/18/2019 and 11/29/2018 TECHNIQUE: Bilateral MLO and CC views were obtained digitally with 3-D mammogram (digital breast tomosynthesis). Computer-aided detection was utilized in evaluation of this exam (CAD). FINDINGS: There is no evidence of suspicious mass or architectural distortion. No worrisome calcifications are evident. There has been no significant change from prior exam(s). BREAST DENSITY: C - The breasts are heterogeneously dense which may obscure small masses. Procedure Note Lizzette Lopez MD - 06/20/2024 CLINICAL: 64 years old, Female, routine annual exam. COMPARISON: 12/22/2022, 09/30/2021, 12/18/2019 and 11/29/2018 TECHNIQUE: Bilateral MLO and CC views were obtained digitally with 3-Dmammogram (digital breast tomosynthesis). Computer-aided detection wasutilized in evaluation of this exam (CAD). FINDINGS: There is no evidence of suspicious mass or architectural distortion. Noworrisome calcifications are evident. There has been no significantchange from prior exam(s). BREAST DENSITY: C - The breasts are heterogeneously dense which mayobscure small masses. IMPRESSION: No evidence of breast malignancy. BI-RADS CATEGORY: 1 - NEGATIVE RECOMMENDATION: Screening bilateral mammogram is recommended in 1 year. Mammo Location: [facility] , [address] [place] [address], [address], . -------- FINAL REPORT -------- Dictated By: Lizzette Lopez Dictated Date: 06/20/2024 09:15 ET Assigned Physician: Lizzette Lopez Reviewed and Electronically Signed By: Lizzette Lopez Signed Date: 06/20/2024 09:17 ET Workstation ID: [id number] Transcribed By: Self Edit Transcribed Date: 06/20/2024 09:15 ET us Self Referral Sppl IMG BI PROCEDURES Final Resul t from Last 3 Months or Most Recently Relevant to Health Maintenance Insurance Care Teams Call Center Assistant Relationship Specialty Start Date End Date Sanket Lopez MD [address] [place] [id number] PCP - General Internal Medicine 06/05/24
== END 2024-11-17 08:49 | disposition home or self-care (01) ==
PROVIDERS: PCP Internal Medicine; Referring Provider Internal Medicine; Visit Provider Registered Nurse
DX: G25.81 Restless legs syndrome (principal); G43.909 Migraine, unspecified, not intractable, without status migrainosus
CPT/HCPCS: 99213